=== PATIENT | female | born 1985 | race Caucasian/White ===

== ENCOUNTER 2021-07-03 21:30 | Emergency (ER) | payer BC, SELFPAY ==
--- NOTE | ~2021-07-03 | CT_ITS ---
EXAMINATION: CT abdomen pelvis w con DATE: 07/03/2021 22:59 INDICATION: Right flank pain TECHNIQUE: Computed tomography (CT) of the abdomen and pelvis was performed without intravenous contr ast. Automated exposure control and iterative reconstruction technique were employed. The dose-length product was 1004.48 mGy-cm. COMPARISON: 03/19/2019 FINDINGS: A couple unchanged subpleural likely benign noncalcified right lower lobe granuloma, the larger measu ring 6 x 3 mm . Heart size is normal. No pericardial or pleural effusion. Liver, gallbladder, spleen, pancreas, bilateral adrenal glands and right kidney are normal. 10 mm left renal cyst at the site of focal cortical scarring. Bowels including the appendix are normal. Small fat-containing umbilical he rnia. Bladder, anteverted uterus and right ovary are normal. 1.5 cm left adnexal cyst. No free intrap eritoneal gas or fluid. No pathologically enlarged abdominal or pelvic lymphadenopathy. Bones are unr emarkable. IMPRESSION: 1. No acute intra-abdominal/pelvic process. Reviewed, dictated and finalized at location A. LFISH CHECKER
[2021-07-03 21:40] VITALS: BP 170/98; PULSE 99; RESP 14; TEMP 36.6; O2SAT 99
[2021-07-03 22:18] VITALS: BP 148/100; PULSE 70; RESP 14; O2SAT 100
[2021-07-03] MEDS: ONDANSETRON INJ 4 MG/2 ML VIAL IV PUSH (22:20)
[2021-07-03 22:24] LABS: Appearance Urine Clear (Clear); Basophils Absolute Auto 0.04 K/mm3 (0.00-0.10); Basophils Percent Auto 0.3 % (0.0-1.0); Bilirubin Urine Negative (Negative); Color Urine Light Yellow (Yellow); Eosinophils Percent Auto 1.6 % (1.0-6.0); Glucose Urine UA Negative (Negative); Hematocrit 39.9 % (35.0-49.0); Hemoglobin 13.2 g/dL (12.0-15.0); Immature Granulocyte Absolute 0.04 K/mm3 (0.00-0.00); Immature Granulocyte Percent A 0.3 % (0.0-0.0); Ketones Urine Negative (Negative); Leukocyte Esterase Ur 1+ (Negative); Lymphocytes Absolute Auto 3.13 K/mm3 (1.10-4.50); Lymphocytes Percent Auto 24.7 % (18.0-42.0); Mean Corpuscular HGB Conc 33.1 g/dL (32.0-36.0); Mean Corpuscular Hemoglobin 30.4 pg (27.0-31.0); Mean Corpuscular Volume 91.9 fL (78.0-102.0); Mean Platelet Volume 10.2 fl (9.2-11.8); Monocytes Absolute Auto 1.31 K/mm3 (0.10-0.90); Monocytes Percent Auto 10.3 % (2.0-11.0); Neutrophils Absolute Auto 7.9 K/mm3 (1.7-7.2); Neutrophils Percent Auto 62.8 % (50.0-70.0); Nitrate Urine Negative (Negative); Platelet Count Result 306 K/mm3 (150-420); Protein Urine Negative (Negative); Red Blood Count 4.34 M/mm3 (4.20-5.40); Red Cell Distribution Width 13.9 % (11.6-14.4); Urobilinogen Urine 0.2 mg/dL (0.2-1.0); White Blood Count 12.7 K/mm3 (4.8-10.8); pH Urine 5.5 (5.0-8.0)
[2021-07-03] MEDS: MORPHINE SULFATE (*CRX) 2 MG/ML INJ IV PUSH (22:25)
[2021-07-03] MEDS: SODIUM CHLORIDE 0.9% IV 500 ML 999 ML IV CONT (22:29)
[2021-07-03 22:31] LABS: Add Urine Microscopic? YES; Bacteria Urine 1+ /hpf; Blood Urine Trace-Intact (Negative); RBC Urine 0-2 /hpf (0-2); Squamous Epithelial Cell Urine Few /hpf (Few)
[2021-07-03 22:37] LABS: SPREG INTERNAL CONTROL Positive; Serum Qual hCG Negative
[2021-07-03 22:41] LABS: Alanine Aminotransferase 53 U/L (14-59); Albumin Level 3.6 g/dL (3.4-5.0); Alkaline Phosphatase 65 U/L (46-116); Anion Gap 8 mmol/L (8-16); Aspartate Amino Transferase 26 U/L (15-37); Bilirubin,Total 0.3 mg/dL (0.00-1.00); Blood Urea Nitrogen 19 mg/dL (7-18); Calcium 8.9 mg/dL (8.5-10.1); Carbon Dioxide 26 mmol/L (21-32); Chloride 103 mmol/L (98-108); Estimated CRCL calculation 69 ml/min; Estimated Glomerular Filt Rate 57; Glucose 97 mg/dL (70-99); Lipase 138 U/L (73-393); Osmolality Calculated 286 mOsm/kg (285-295); Potassium 4.1 mmol/L (3.5-5.1); Sodium 137 mmol/L (136-145); Total Protein 7.1 g/dL (6.4-8.2)
--- NOTE | 2021-07-03 22:42 | ED.ABDPAIN ---
HPI - Abdominal Pain General Chief Complaint: Abdominal Pain Stated Complaint: rt side pain Time Seen by Provider: 07/03/21 21:33 Source: patient, RN notes reviewed and old records reviewed Mode of arrival: ambulatory Limitations: no limitations History of Present Illness MD elicited complaint: flank pain Pertinent past history: none Onset (ago): hour(s) (4) Pain Consistency: constant Location: R flank Severity: mild Pain scale (0-10): 4 Quality: cramping, aching and dull Radiation: R flank Migration to: no migration Exacerbating factors: nothing Relieving factors: nothing Associated symptoms: nausea Related Data Allergies Allergy/AdvReac Type Severity Reaction Status Date / Time nalbuphine [From Nubain] Allergy Severe Anaphylactic Verified 07/03/21 21:44 Shock Review of Systems Review of Systems: All systems reviewed & are unremarkable except as noted in HPI and below PMFSH Past Medical History Medical History UTI (urinary tract infection) Exam Const: General: no acute distress Orientation/consciousness: patient oriented x3 Limitations: no limitations HENMT: Head: normal to inspection Ears: external ears normal, TM's normal bilaterally and EAC's normal General nose exam: Normal external nose present and Normal nares present Mouth: Yes lip normal and Yes moist mucous membranes Eyes: Conjunctivae: conjunctivae normal Pupils: Equal, round and reactive pupils present EOM: EOMs intact bilaterally Neck: Neck: normal visual inspection and no lymphadenopathy Chest: Chest palpation & inspection: normal inspection of the chest Resp: Effort & Inspection: normal respiratory effort Auscultation: clear to auscultation bilaterally Cardio: Rate: regular rate Rhythm: regular rhythm GI: GI Palp: Yes Soft to palpation and No Tenderness to palpation present (GI) Auscultation: normal bowel sounds : General: Yes no CVA tenderness Other: minimal suprapubic tenderness Back/Spine/Pelvis: Back: no CVA tenderness Skin: General skin exam: normal color Rashes: no rashes Neuro: General: patient oriented x3, moves all extremities, no meningeal signs, no focal motor deficits and CN's II-XI intact bilaterally Extrem: General: normal to inspection and no pedal edema Psych: Appearance: grossly normal and well kempt Mental Status: mental status grossly normal Affect: normal affect Thought content: Yes Normal thought content present Course Course Emergency Course: Pt was stable in the ED, less painful. Reevaluation(s) Reevaluation #1: moderated BP. Date: 07/03/21 Time: 22:25 Vital Signs Vital signs: Vital Signs Temperature 36.6 C 07/03/21 21:40 Pulse Rate 99 07/03/21 21:40 Respiratory Rate 14 07/03/21 21:40 Blood Pressure 170/98 H 07/03/21 21:40 Pulse Oximetry 99 07/03/21 21:40 Temperature 36.3 C L 07/04/21 00:58 Pulse Rate 61 07/04/21 00:58 Respiratory Rate 17 07/04/21 00:58 Blood Pressure 144/102 H 07/04/21 00:58 Pulse Oximetry 100 07/04/21 00:58 MDM - Abdominal Pain Differential Diagnosis Differential diagnosis: Likely abdominal pain, acute appendicitis, calculus of kidney, small bowel obstruction and other (uti) Medical Records Attestation: I reviewed the patient's medical records. Lab Data Attestation: I reviewed the patient's lab results. Result diagrams: 07/03/21 22:19 07/03/21 22:19 Labs: Lab Results 07/03/21 07/03/21 07/03/21 Range/Units 22:19 22:19 22:19 WBC 12.7 H (4.8-10.8) K/mm3 RBC 4.34 (4.20-5.40) M/mm3 Hgb 13.2 (12.0-15.0) g/dL Hct 39.9 (35.0-49.0) % MCV 91.9 (78.0-102.0) fL MCH 30.4 (27.0-31.0) pg MCHC 33.1 (32.0-36.0) g/dL RDW 13.9 (11.6-14.4) % Plt Count 306 (150-420) K/mm3 MPV 10.2 (9.2-11.8) fl Immature Gran % (Auto) 0.3 H (0.0-0.0) % Neut % (Auto) 62.8 (50.0-70.0) % Lymph % (Auto) 24.7
[2021-07-03 23:06] VITALS: BP 175/98; PULSE 60; RESP 14; O2SAT 100
--- NOTE | 2021-07-03 23:07 | PC.NURSE ---
PT HAS RETURNED FROM CT, REPORTS PAIN FREE AT THIS TIME. DAUGHTER AT BEDSIDE. PT IS AWAITING RESULTS AT THIS TIME. NAD NOTED. PT REMAINS HYPERTENSIVE AT THIS TIME. PT HAS IVF INFUSING ORDERED WITHOUT DIFFICULTY. PT DENIES COMPLAINTS, WARM BLANKETS PROVIDED. REPORT TO CISCO GUZMAN AT THIS TIME.
[2021-07-04 00:58] VITALS: BP 144/102; PULSE 61; RESP 17; TEMP 36.3; O2SAT 100
== END 2021-07-04 01:02 | disposition home or self-care (01) ==
PROVIDERS: Emergency Provider Emergency Medicine
DX: N39.0 Urinary tract infection, site not specified (principal)
CPT/HCPCS: 36415; 74177; 80053; 81001; 83690; 84703; 85025; 96361; 96365; 96375; 99284; J0696; J2270; J2405; J7040; Q9967

== ENCOUNTER 2021-09-20 12:20 | Emergency (ER) | payer BC, MEDICAID, SELFPAY ==
--- NOTE | ~2021-09-20 | CT_ITS ---
EXAMINATION: CT brain wo con DATE: 09/20/2021 14:05 INDICATION: Head injury. Headache. TECHNIQUE: Computed tomography (CT) of the head was performed without intravenous contrast. The mA wa s adjusted according to patient size. Iterative reconstruction technique was employed. The dose-lengt h product was 529.67 mGy-cm. COMPARISON: None FINDINGS: There is no intracranial hemorrhage, acute infarction, or abnormal intracranial mass lesion . The ventricles are normal in size. The paranasal sinuses are clear. The mastoid air cells are rojas l. The orbits are normal. IMPRESSION: 1. Normal brain. Reviewed, dictated and finalized at location A. IMPRESSION: 1. Normal brain.
--- NOTE | ~2021-09-20 | CT_ITS ---
EXAMINATION: CT cervical spine wo con DATE: 09/20/2021 14:05 INDICATION: Head injury. TECHNIQUE: Computed tomography (CT) of the cervical spine was performed without intravenous contrast. Automated exposure control and iterative reconstruction technique were employed. The dose-length pro duct was 372.21 mGy-cm. COMPARISON: None FINDINGS: There is kyphosis and 3 degrees levocurvature of cervical spine. Vertebral body heights are normal. Intervertebral disc heights are normal. The following disc levels are specifically discussed : C2-C3: There is no uncovertebral joint osteoarthritis. There is mild right facet joint osteoarthritis . There is no neural foraminal stenosis. There is no central canal stenosis. C3-C4: There is no uncovertebral joint osteoarthritis. There is mild bilateral facet joint osteoarthr itis. There is no neural foraminal stenosis. There is no central canal stenosis. C4-C5: There is no uncovertebral joint osteoarthritis. There is severe right facet joint osteoarthrit is. There is mild right neural foraminal stenosis. There is mild central canal stenosis. C5-C6: There is no uncovertebral joint osteoarthritis. There is no facet joint osteoarthritis. There is no neural foraminal stenosis. There is no central canal stenosis. C6-C7: There is no uncovertebral joint osteoarthritis. There is moderate right facet joint osteoarthr itis. There is no neural foraminal stenosis. There is no central canal stenosis. C7-T1: There is no uncovertebral joint osteoarthritis. There is severe bilateral facet joint osteoart hritis. There is mild bilateral neural foraminal stenosis. There is no central canal stenosis. IMPRESSION: 1. No fracture. 2. Mild cervical spondylosis. Reviewed, dictated and finalized at location A.
[2021-09-20 13:30] VITALS: O2SAT 99
[2021-09-20 13:40] VITALS: BP 146/105; PULSE 81; RESP 20; TEMP 35.7; O2SAT 98
[2021-09-20] MEDS: KETOROLAC (*BKC) 60 MG/2 ML VIAL IM (13:49)
--- NOTE | 2021-09-20 14:23 | ED.HEATRA ---
HPI - Head Injury General Chief complaint: Head Injury Stated complaint: HIT HEAD PAIN IN HEAD AND NECK Time Seen by Provider: 09/20/21 14:23 Source: patient Mode of arrival: ambulatory Limitations: no limitations History of Present Illness HPI Narrative: this is a 35-year-old female that presents with a head injury and radiating into her left neck area after she ran into a swinging door causing some pain and radiation to neck area with no loss of consciousness no nausea vomiting patient did take some Tylenol with minimal relief. There is no nausea vomiting no chest pain no numbness or tingling radiating down her into her shoulders or arms or fingers. Has good range of motion although tender in the neck due to pain there is no blurry vision. Complaint: head injury Onset (ago): day(s) Mechanism of Injury: other ( Hit a swinging door) Place: work Loss of Consciousness: no Location of injury: frontal Severity: mild Severity scale (1-10): 4 Quality: dull Radiation: neck Related Data Allergies Allergy/AdvReac Type Severity Reaction Status Date / Time nalbuphine [From Nubain] Allergy Severe Anaphylactic Verified 07/03/21 21:44 Shock Review of Systems Review of Systems: All systems reviewed & are unremarkable except as noted in HPI and below PMFSH Past Medical History Medical History UTI (urinary tract infection) Exam Const: General: no acute distress and alert Orientation/consciousness: patient oriented x3 HENMT: Head: normal to inspection and contusion Eyes: Conjunctivae: conjunctivae normal Pupils: Equal, round and reactive pupils present EOM: EOMs intact bilaterally Direct Ophthalmoscopy: no photophobia Neck: Neck: normal visual inspection, no lymphadenopathy and no meningeal signs Chest: Chest palpation & inspection: normal inspection of the chest Resp: Effort & Inspection: normal respiratory effort Auscultation: clear to auscultation bilaterally Cardio: Rate: regular rate Rhythm: regular rhythm GI: GI Palp: Yes Soft to palpation : General: Yes no CVA tenderness Skin: General skin exam: normal color Rashes: no rashes Neuro: General: patient oriented x3 Extrem: General: normal to inspection Psych: Mental Status: mental status grossly normal Affect: normal affect Course Course Emergency Course: CT scan of head and neck reviewed with patient patient received IM Toradol. Reassessment of patient, symptoms have improved. Vital Signs Vital signs: Vital Signs Temperature 35.7 C L 09/20/21 13:40 Pulse Rate 81 09/20/21 13:40 Respiratory Rate 20 09/20/21 13:40 Blood Pressure 146/105 H 09/20/21 13:40 Pulse Oximetry 98 09/20/21 13:40 Temperature 35.7 C L 09/20/21 13:40 Pulse Rate 81 09/20/21 13:40 Respiratory Rate 20 09/20/21 13:40 Blood Pressure 146/105 H 09/20/21 13:40 Pulse Oximetry 98 09/20/21 13:40 Critical Care Time Critical Care Time Critical Care Time: No Discharge Plan Discharge Clinical Impression: Cervical muscle strain Qualifiers: Encounter type: initial encounter Qualified Code(s): S16.1XXA - Strain of muscle, fascia and tendon at neck level, initial encounter Headache Qualifiers: Headache type: unspecified Headache chronicity pattern: acute headache Intractability: not intractable Qualified Code(s): R51.9 - Headache, unspecified Patient Disposition: Home, Self-Care Condition: Stable Instructions: Antibiotic Form, Cervical Strain (ED), Head Injury (ED) Additional Instructions: can use warm compress to affected neck, take medicine as prescribed follow-up primary care physician if symptoms persist or worsen. Prescriptions: New naproxen 500 mg tablet 500 mg PO BID Qty: 14 RF: 0 cyclobenzaprine 5 mg tablet 5 mg PO TID Qty: 20 RF: 0 No Action sulfamethoxazole-trimethoprim [Bactrim DS] 800-160 mg tablet 1 tablet PO Q12H Qty: 20 RF: 0 ibupro
[2021-09-20 15:10] VITALS: BP 141/100; PULSE 78; RESP 20; TEMP 36.9; O2SAT 99
== END 2021-09-20 15:13 | disposition home or self-care (01) ==
PROVIDERS: Emergency Provider Emergency Medicine; PCP Family Medicine
DX: S16.1XXA Strain of muscle, fascia and tendon at neck level, initial encounter (principal); R51.9 Headache, unspecified; W22.8XXA Striking against or struck by other objects, initial encounter
CPT/HCPCS: 70450; 72125; 96372; 99284; J1885

== ENCOUNTER 2021-11-19 09:43 | Emergency (ER) | payer BC, MEDICAID, SELFPAY ==
[2021-11-19 09:55] VITALS: BP 135/93; PULSE 94; RESP 16; TEMP 36.6; O2SAT 97
[2021-11-19] MEDS: TETRACAINE HCL 0.5% OPHTH SOLN 4 ML BTL 1 DROP EACH EYE (10:04)
[2021-11-19] MEDS: DACRIOSE EYE IRRIGATION 118 ML BOTTLE 10 ML LEFT EYE (10:04)
[2021-11-19] MEDS: FLUORESCEIN SOD 1 MG/STRIP EACH EYE (10:04)
--- NOTE | 2021-11-19 10:09 | ED.EYEPROB ---
HPI - Eye Problem General Chief complaint: Eye Problems Stated complaint: L EYE PAIN Source: patient Mode of arrival: ambulatory Limitations: no limitations History of Present Illness HPI Narrative: This is a 36-year-old female who presents with left eye irritation and redness with tearing burning and pain no known injury no known foreign body in her left eye started approximately 1 day ago and has become worse currently there is tearing redness with no fever chills no visual disturbance. chief complaint: eye redness Onset (ago): day(s) Onset description: gradual Duration: constant Location: left eye Eye Symptoms: burning, redness and pain Place: home Severity: mild Related Data Home Medications Medication Instructions Recorded Confirmed No Home Medications 11/19/21 11/19/21 Allergies Allergy/AdvReac Type Severity Reaction Status Date / Time nalbuphine [From Nubain] Allergy Severe Anaphylactic Verified 11/19/21 09:59 Shock Review of Systems Review of Systems: All systems reviewed & are unremarkable except as noted in HPI and below PMFSH Past Medical History Medical History UTI (urinary tract infection) Exam Const: General: healthy appearing and no acute distress Limitations: no limitations HENMT: Head: normal to inspection Ears: external ears normal Mouth: Yes Normal oral and palatal mucosa present Eyes: Conjunctivae: conjunctival abnormality ( Erythema) Pupils: Equal, round and reactive pupils present EOM: EOMs intact bilaterally Neck: Neck: normal visual inspection Chest: Chest palpation & inspection: normal inspection of the chest Resp: Effort & Inspection: normal respiratory effort Auscultation: clear to auscultation bilaterally Cardio: Rate: regular rate Rhythm: regular rhythm Back/Spine/Pelvis: Back: no CVA tenderness Skin: General skin exam: normal color Rashes: no rashes Wounds: no wounds Neuro: General: patient oriented x3, moves all extremities and no meningeal signs Extrem: General: normal to inspection, no clubbing, cyanosis or edema and no pedal edema Psych: Mental Status: mental status grossly normal Affect: normal affect Course Course Emergency Course: tetracaine was instilled into the left eye patient states that eye discomfort has improved the eye was visualized with some slower seen stain showed no corneal abrasions. Patient had a dose of TobraDex instilled to the left eye. Vital Signs Vital signs: Vital Signs Temperature 36.6 C 11/19/21 09:55 Pulse Rate 94 11/19/21 09:55 Respiratory Rate 16 11/19/21 09:55 Blood Pressure 135/93 H 11/19/21 09:55 Pulse Oximetry 97 11/19/21 09:55 Oxygen Delivery Room Air 11/19/21 09:55 Temperature 36.6 C 11/19/21 09:55 Pulse Rate 94 11/19/21 09:55 Respiratory Rate 16 11/19/21 09:55 Blood Pressure 135/93 H 11/19/21 09:55 Pulse Oximetry 97 11/19/21 09:55 Oxygen Delivery Room Air 11/19/21 09:55 Procedures FB Removal Eye Foreign Body #1: Time Out performed: Yes Location: eye (L) Topical anesthetic used: tetracaine Foreign body: other ( No foreign body visualized) Evidence of corneal penetration: No Procedure performed under: direct visualization with magnification Post-procedure medication: ophthalmic antibiotic Patient tolerated procedure: well Critical Care Time Critical Care Time Critical Care Time: No Discharge Plan Discharge Clinical Impression: Bacterial conjunctivitis Patient Disposition: Home, Self-Care Condition: Stable Instructions: Antibiotic Form, Conjunctivitis (ED) Additional Instructions: use eyedrops has given 4 times daily x1 week. Follow up primary care physician if symptoms persist or worsen. Prescriptions: No Action No Home Medications Follow-up/Referrals: Gianfranco Rhodes M.D. [Primary Care Provider] -
[2021-11-19] MEDS: TOBRAMYCIN/DEXAMETHASONE OP 2.5 ML BTL 1 DROP LEFT EYE (10:13)
[2021-11-19 10:17] VITALS: BP 135/93; PULSE 94; RESP 16; TEMP 36.6; O2SAT 97
== END 2021-11-19 10:19 | disposition home or self-care (01) ==
PROVIDERS: Emergency Provider Emergency Medicine; PCP Family Medicine
DX: H10.9 Unspecified conjunctivitis (principal)
CPT/HCPCS: 99283; A9270

== ENCOUNTER 2022-06-14 08:08 | Emergency (ER) | payer BC, MEDICAID, SELFPAY ==
--- NOTE | ~2022-06-14 | US_ITS ---
Limited Abdominal Sonogram: Real-time sonographic imaging of the right upper quadrant was performed. Clinical History: Abdominal pain Findings: The liver appears normal with no evidence of mass lesion or bile duct dilatation. Main por fanta vein demonstrates normal direction of flow. The gallbladder is well distended, with probable smal l amount of gallbladder sludge. No gallbladder wall thickening. The common bile duct measures 3 mm. The visualized pancreas, aorta, and IVC are unremarkable. Right kidney measures 8.6 cm in length, wit hout evidence of hydronephrosis. Impression: Probable gallbladder sludge. Reviewed, dictated and finalized at location . [employer] Impression: Probable gallbladder sludge.
[2022-06-14 08:10] VITALS: BP 140/104
[2022-06-14 08:13] VITALS: BP 153/115; PULSE 104; RESP 14; TEMP 36.6; O2SAT 98
--- NOTE | 2022-06-14 08:29 | ED.ABDPAIN ---
HPI - Abdominal Pain General Chief Complaint: Abdominal Pain Stated Complaint: Abdominal Pain Time Seen by Provider: 06/14/22 08:29 Source: patient and RN notes reviewed Mode of arrival: ambulatory Limitations: no limitations History of Present Illness HPI narrative: Patient states that she had some abdominal pain 2 days. Then last night she began having vomiting. She does not related to any meals. She states that her pain is in the epigastric region and then goes out from there mostly on the right side. She denies any other urinary symptoms. She denies any constipation. MD elicited complaint: abdominal pain Pertinent past history: none Onset (ago): day(s) (2) Pain Consistency: intermittent Location: epigastric Severity: moderate Quality: cramping and aching Radiation: none Migration to: no migration Exacerbating factors: nothing Relieving factors: nothing Associated symptoms: nausea and vomiting Related Data Allergies Allergy/AdvReac Type Severity Reaction Status Date / Time nalbuphine [From Nubain] Allergy Severe Anaphylactic Verified 01/29/22 09:03 Shock Review of Systems Review of Systems: All systems reviewed & are unremarkable except as noted in HPI and below Constitutional: Constitutional: Denies chills and Denies fever(s) Gastrointestinal: Gastrointestinal: Denies diarrhea Genitourinary: Genitourinary: Denies nocturia Musculoskeletal: Musculoskeletal: Denies myalgias PMFSH Past Medical History Medical History (Updated 06/14/22 @ 09:36 by Orlando Huerta MD) No active medical problems Surgical History Surgical History (Updated 06/14/22 @ 08:36 by Orlando Huerta MD) History of bilateral tubal ligation Social History Social History (Updated 06/14/22 @ 08:37 by Orlando Huerta MD) Smoking status: Never smoker Substance use: never Exam Const: General: healthy appearing, no acute distress and alert Nutritional Appearance: well nourished Orientation/consciousness: patient oriented x3 Limitations: no limitations Other: female tech in room during examination. HENMT: Head: normal to inspection Ears: external ears normal Face/Nose/Sinus: Normal external nose present Face and sinus: normal facial exam Mouth: Yes moist mucous membranes Eyes: Conjunctivae: conjunctivae normal Pupils: Equal, round and reactive pupils present EOM: EOMs intact bilaterally Neck: Neck: normal visual inspection Resp: Effort & Inspection: normal respiratory effort Auscultation: clear to auscultation bilaterally Cardio: Rate: regular rate Rhythm: regular rhythm GI: GI Palp: Yes Soft to palpation, Yes Tenderness to palpation present (GI) ( Moderate RUQ positive Lynn sign) and Yes Guarding due to palpation present (GI) ( moderate) Auscultation: Hypoactive bowel sounds present Back/Spine/Pelvis: Cervical Spine: cervical ROM normal Thoracic/Lumbar Spine: thoraco-lumbar ROM normal Skin: General skin exam: normal color Rashes: no rashes Neuro: General: patient oriented x3, moves all extremities, no focal motor deficits and CN's II-XI intact bilaterally Speech: normal speech Gait exam (Neuro): Normal gait present Extrem: General: normal to inspection and no clubbing, cyanosis or edema Psych: Mental Status: mental status grossly normal Affect: normal affect Attitude: cooperative Course Vital Signs Vital signs: Vital Signs Blood Pressure 140/104 H 06/14/22 08:10 Temperature 36.6 C 06/14/22 08:13 Pulse Rate 104 H 06/14/22 08:13 Respiratory Rate 14 06/14/22 08:13 Blood Pressure 153/115 H 06/14/22 08:13 Pulse Oximetry 98 06/14/22 08:13 Oxygen Delivery Room Air 06/14/22 08:13 MDM - Abdominal Pain MDM Narrative Medical decision making narrative: Differential diagnosis: Cholelithiasis, biliary colic, is possible due to her exam. Her labs showed that she has not having any current obstruction in her common bile duct. She will need to see a surgeon for po
--- NOTE | 2022-06-14 08:31 | PC.NURSE ---
dr cedeno in room with pt, miladis jaramillo in room during evaluation.
[2022-06-14 08:50] LABS: Add Urine Microscopic? YES; Appearance Urine Slightly Cloudy (Clear); Bilirubin Urine 1+ (Negative); Blood Urine Negative (Negative); Color Urine Light Yellow (Yellow); Glucose Urine UA Negative (Negative); Ketones Urine 2+ (Negative); Leukocyte Esterase Ur 2+ LEU/UL (Negative); Nitrate Urine Negative (Negative); Protein Urine Trace (Negative)
[2022-06-14 08:52] LABS: Basophils Absolute Auto 0.07 K/mm3 (0.00-0.10); Basophils Percent Auto 0.7 % (0.0-1.0); Eosinophils Absolute Auto 0.14 K/mm3 (0.02-0.50); Eosinophils Percent Auto 1.4 % (1.0-6.0); Hematocrit 42.3 % (35.0-49.0); Hemoglobin 14.3 g/dL (12.0-15.0); Immature Granulocyte Absolute 0.03 K/mm3 (0.00-0.00); Immature Granulocyte Percent A 0.3 % (0.0-0.0); Lymphocytes Absolute Auto 1.78 K/mm3 (1.10-4.50); Lymphocytes Percent Auto 17.2 % (18.0-42.0); Mean Corpuscular HGB Conc 33.8 g/dL (32.0-36.0); Mean Corpuscular Hemoglobin 30.7 pg (27.0-31.0); Mean Corpuscular Volume 90.8 fL (78.0-102.0); Mean Platelet Volume 10.4 fl (9.2-11.8); Monocytes Percent Auto 9.7 % (2.0-11.0); Neutrophils Absolute Auto 7.3 K/mm3 (1.7-7.2); Neutrophils Percent Auto 70.7 % (50.0-70.0); Platelet Count Result 308 K/mm3 (150-420); Red Blood Count 4.66 M/mm3 (4.20-5.40); Red Cell Distribution Width 13.5 % (11.6-14.4); White Blood Count 10.4 K/mm3 (4.8-10.8)
[2022-06-14 08:55] LABS: Bacteria Urine 2+ /hpf; Mucus Urine Moderate /lpf; RBC Urine None seen /hpf (0-2); Squamous Epithelial Cell Urine Many /hpf (Few)
--- NOTE | 2022-06-14 08:56 | PC.NURSE ---
ultrasound staff in with pt at this time.
[2022-06-14 09:09] LABS: Alanine Aminotransferase 39 U/L (14-59); Albumin Level 4.1 g/dL (3.4-5.0); Alkaline Phosphatase 65 U/L (46-116); Amylase 79 U/L (25-115); Anion Gap 7 mmol/L (8-16); Aspartate Amino Transferase 12 U/L (15-37); Bilirubin,Total 0.4 mg/dL (0.00-1.00); Blood Urea Nitrogen 11 mg/dL (7-18); Calcium 9.6 mg/dL (8.5-10.1); Carbon Dioxide 31 mmol/L (21-32); Chloride 102 mmol/L (98-108); Estimated CRCL calculation 72 ml/min; Estimated Glomerular Filt Rate > 60; Glucose 89 mg/dL (70-99); Lipase 31 U/L (16-77); Osmolality Calculated 288 mOsm/kg (285-295); Potassium 3.9 mmol/L (3.5-5.1); Sodium 140 mmol/L (136-145); Total Protein 7.6 g/dL (6.4-8.2)
[2022-06-14 09:11] LABS: Lactic Acid Reflex 0.9 mmol/L (0.4-2.0)
[2022-06-14 09:14] LABS: CRP 0.5 mg/dL (0.0-0.9)
[2022-06-14] MEDS: DICYCLOMINE HCL INJ 20 MG/2 ML VIAL IM (09:47)
[2022-06-14] MEDS: ONDANSETRON HCL ODT 4 MG TABLET PO (10:00)
--- NOTE | 2022-06-14 10:01 | PC.NURSE ---
pt having dry heeves dr cedeno notified. order received.
[2022-06-14 10:02] VITALS: BP 150/108; PULSE 94; RESP 20; TEMP 36.9; O2SAT 94
--- NOTE | 2022-06-14 10:07 | PC.NURSE ---
dr cedeno to also send james to [facility] for nausea.
== END 2022-06-14 10:07 | disposition home or self-care (01) ==
PROVIDERS: Emergency Provider Emergency Medicine; PCP Family Medicine
DX: K80.20 Calculus of gallbladder without cholecystitis without obstruction (principal); N30.01 Acute cystitis with hematuria
CPT/HCPCS: 36415; 76705; 80053; 81001; 82150; 83605; 83690; 85025; 86140; 87086; 96372; 99284; A9270; J0500

== ENCOUNTER 2022-06-15 11:56 | Observation (INO) | payer BC, MEDICAID, SELFPAY ==
[2022-06-15] VITALS (8 sets, daily range): BP systolic 115–145; BP diastolic 71–107; PULSE 64–98; RESP 14–20; TEMP 36–36.9; O2SAT 97–100; BMI 30.8
--- NOTE | ~2022-06-15 | CT_ITS ---
EXAMINATION: CT abdomen pelvis w con DATE: 06/15/2022 12:54 INDICATION: Abdomen pain TECHNIQUE: Computed tomography (CT) of the abdomen and pelvis was performed with 100 cc Omnipaque 350 intravenous contrast. The dose-length product was 625.73 mGy-cm. Automated exposure control and iter ative reconstruction technique were employed. COMPARISON: CT dated 07/03/2021. FINDINGS: Lung bases are unremarkable. Heart size normal. No significant pleural or pericardial effus ion. Ossified granuloma left lower lobe. No pneumothorax. No significant vascular abnormality. No lym phadenopathy. Small amount of free fluid in the pelvis. Colonic diverticulosis without evidence for d iverticulitis. Fatty infiltration of the liver. The spleen, pancreas, adrenal glands and right kidney are unremarkab le. There is focal renal cortical thinning and the left kidney. Nonobstructive bowel gas pattern. No free air. Nonobstructive bowel gas pattern. No acute osseous abnormality. Gallbladder is present. IMPRESSION: 1. No acute abdominal abnormality. Reviewed, dictated and finalized at location A. SHOP TECHNICIAN
[2022-06-15 12:28] LABS: Appearance Urine Slightly Cloudy (Clear); Basophils Absolute Auto 0.1 K/mm3 (0.0-0.1); Basophils Percent Auto 0.4 % (0.2-1.2); Bilirubin Urine 2+ (Negative); Blood Urine Negative (Negative); Color Urine Yellow (Yellow); Eosinophils Absolute Auto 0.1 K/mm3 (0-0.3); Eosinophils Percent Auto 0.6 % (0-4.4); Glucose Urine UA Negative (Negative); Hematocrit 45.1 % (37.0-47.0); Hemoglobin 15.4 g/dL (12.0-15.0); Immature Granulocyte Absolute 0.03 K/mm3 (0.00-0.031); Immature Granulocyte Percent A 0.2 % (0-0.5); Ketones Urine 2+ mg/dL (Negative); Leukocyte Esterase Ur Trace LEU/UL (Negative); Lymphocytes Absolute Auto 2.58 K/mm3 (0.9-3.2); Lymphocytes Percent Auto 16.1 % (18.3-44.2); Mean Corpuscular HGB Conc 34.1 g/dl (32-36); Mean Corpuscular Hemoglobin 30.7 pg (26-34); Mean Platelet Volume 10.3 fl (7.4-10.4); Monocytes Absolute Auto 1.6 K/mm3 (0.1-0.6); Monocytes Percent Auto 10.1 % (2.6-8.5); Neutrophils Absolute Auto 11.6 K/mm3 (1.3-6.7); Neutrophils Percent Auto 72.6 % (45.5-73.1); Nitrate Urine Negative (Negative); Platelet Count Result 344 k/mm3 (150-375); Protein Urine 1+ mg/dL (Negative); Red Blood Count 5.01 M/mm3 (4.2-5.4); Red Cell Distribution Width 13.7 % (11.5-14.5); Specific Grav Ur >= 1.030 (1.001-1.035); Urobilinogen Urine 0.2 mg/dL (<2.0); pH Urine 5.5 (5.0-9.0)
[2022-06-15 12:37] LABS: Alanine Aminotransferase 33 U/L (6-35); Albumin Level 4.5 g/dL (3.5-5.1); Alkaline Phosphatase 62 U/L (38-126); Anion Gap 12 mmol/L (8-16); Aspartate Amino Transferase 32 U/L (14-36); Bilirubin,Total 0.6 mg/dL (0.2-1.3); Blood Urea Nitrogen 16 mg/dL (7-17); Calcium 9.3 mg/dL (8.4-10.2); Carbon Dioxide 24 mmol/L (22-30); Chloride 102 mmol/L (98-107); Estimated CRCL calculation 71 ml/min; Estimated Glomerular Filt Rate > 60; Glucose 84 mg/dL (65-110); Lipase 74 U/L (23-300); Potassium 3.9 mmol/L (3.4-5.0); Sodium 138 mmol/L (137-145)
--- NOTE | 2022-06-15 12:44 | ED.ABDPAIN ---
HPI - Abdominal Pain General Chief Complaint: Abdominal Pain Stated Complaint: Abd Pain Time Seen by Provider: 06/15/22 12:07 Source: RN notes reviewed History of Present Illness HPI narrative: Patient presents emergency department from home for abdominal pain. Patient states symptoms began approximately 3 days ago. Patient states pain is across the upper abdomen worse in the right upper quadrant is associated with nausea and vomiting she denies any fevers or chills chest pain shortness of breath. The pain is described as sharp and stabbing does not radiate. Patient states [facility] her gallbladder showing that she had cholelithiasis and was discharged home with dicyclomine which she took this morning with minimal relief states her pain worsened today Related Data Allergies Allergy/AdvReac Type Severity Reaction Status Date / Time nalbuphine [From Nubain] Allergy Severe Anaphylactic Verified 06/15/22 12:05 Shock Review of Systems Review of Systems: Gen.: Denies fevers or chills ENT: Denies congestion Respiratory: Denies shortness of breath or cough CV: Denies chest pain or palpitations GI: See HPI Musculoskeletal: Denies back pain or muscle pain Neuro: Denies numbness, tingling, weakness or focal weakness Skin: Denies rash Except as documented, all other systems reviewed and negative [facility] Past Medical History Medical History No active medical problems Surgical History Surgical History (Updated 06/14/22 @ 08:36 by Orlando Huerta MD) History of bilateral tubal ligation Social History Social History Smoking status: Never smoker Substance use: never Exam Narrative: APPEARANCE: No acute distress, nontoxic, resting in bed HEENT: Normocephalic, atraumatic, OMM RESPIRATORY: No respiratory distress, clear to auscultation bilaterally with no rhonchi wheezing or rales CARDIOVASCULAR: RRR s murmur ABDOMINAL: Soft nondistended tender palpation epigastric and right upper quadrant no tenderness in right lower quadrant, left lower quadrant and left upper quadrant no rebound or guarding MUSCULOSKELETAl: Moves all extremities. No clubbing, cyanosis or edema. NEURO: Awake and alert. Following commands, speech normal, no focal deficits SKIN:: Warm, dry. Normal Color PSYCHIATRIC: Normal affect/mood Course Course Emergency Course: Reviewed right upper quadrant ultrasound from yesterday showing gallbladder sludge Patient continues to have pain in right upper quadrant following medication states she cannot take morphine without problems morphine given Plan working the pain is improved but is still present chip silo tender right upper quadrant Discussed with Dr. Salas for general surgery agrees with admission to his service recommends patient started on Zosyn Discussed with patient and family results of workup and diagnosis. Discussed need for admission. Patient and family understand and agree to current treatment plan Vital Signs Vital signs: Vital Signs Temperature 98.5 F 06/15/22 12:02 Pulse Rate 86 06/15/22 12:02 Respiratory Rate 20 06/15/22 12:02 Blood Pressure 128/107 H 06/15/22 12:02 Pulse Oximetry 98 06/15/22 12:02 Oxygen Delivery Room Air 06/15/22 12:02 Temperature 98.5 F 06/15/22 12:02 Pulse Rate 82 06/15/22 13:06 Respiratory Rate 18 06/15/22 13:06 Blood Pressure 131/94 H 06/15/22 13:06 Pulse Oximetry 100 06/15/22 13:06 Oxygen Delivery Room Air 06/15/22 12:02 MDM - Abdominal Pain MDM Narrative Medical decision making narrative: Patient presents emergency department for right heart abdominal pain has been ongoing for the past 3 days patient had a ultrasound yesterday showing gallbladder sludge elevated white count today that is increased up to 16 patient continues to have pain in the right upper quadrant afte
[2022-06-15 12:45] LABS: Bacteria Urine Trace /hpf; Mucus Urine Heavy /lpf; Squamous Epithelial Cell Urine Many /hpf (Few)
--- NOTE | 2022-06-15 12:51 | PC.NURSE ---
Pt in CT
[2022-06-15 12:53] LABS: Add Urine Microscopic? YES
[2022-06-15] MEDS: ONDANSETRON INJ 4 MG/2 ML VIAL IV PUSH (13:07)
[2022-06-15] MEDS: SODIUM CHLORIDE 0.9% IV 1,000 ML 999 ML IV CONT (13:07)
[2022-06-15] MEDS: MORPHINE SULFATE (*CRX) 4 MG/ML INJ IV PUSH ×3 (14:17→21:46)
[2022-06-15] MEDS: SODIUM CHLORIDE 0.9% IV 1,000 ML 125 ML IV CONT (15:13)
[2022-06-15 16:00] LABS: Influenza A QL RT-PCR Negative (Negative); Influenza B QL RT-PCR Negative (Negative); RSV RNA, RT-PCR Negative (Negative); SARS-CoV-2 RNA PCR Negative
--- NOTE | 2022-06-15 17:04 | ADMGEN ---
This patient, Lily Peña, was admitted to 3 Med Surg Room 309-01 at 1645. Patient/family oriented to hospital policies and general routines including ID bracelet, bed and alarms, visiting hours, pain management, procedures, bathroom and other care routines, personal items, smoking policy, room service/diet, and visiting hours. Information on how to activate the Rapid Response Team has been discussed. Patient/Family are encouraged to report perceived risks to care and to ask questions if they do not understand what they are told or what they should do.
[2022-06-16] MEDS: SODIUM CHLORIDE 0.9% IV 1,000 ML 125 ML IV CONT ×2 (02:22→06:57)
[2022-06-16 06:00] VITALS: BP 121/80; PULSE 70; RESP 20; TEMP 36; O2SAT 100
[2022-06-16 06:03] LABS: Basophils Absolute Auto 0.1 K/mm3 (0.0-0.1); Basophils Percent Auto 0.6 % (0.2-1.2); Eosinophils Absolute Auto 0.2 K/mm3 (0-0.3); Eosinophils Percent Auto 1.3 % (0-4.4); Hematocrit 40.2 % (37.0-47.0); Hemoglobin 13.3 g/dL (12.0-15.0); Immature Granulocyte Absolute 0.04 K/mm3 (0.00-0.031); Immature Granulocyte Percent A 0.3 % (0-0.5); Lymphocytes Absolute Auto 2.46 K/mm3 (0.9-3.2); Lymphocytes Percent Auto 19.4 % (18.3-44.2); Mean Corpuscular HGB Conc 33.1 g/dl (32-36); Mean Corpuscular Hemoglobin 30.6 pg (26-34); Mean Corpuscular Volume 92.6 fl (80-100); Mean Platelet Volume 10.4 fl (7.4-10.4); Monocytes Absolute Auto 1.2 K/mm3 (0.1-0.6); Monocytes Percent Auto 9.5 % (2.6-8.5); Neutrophils Absolute Auto 8.7 K/mm3 (1.3-6.7); Neutrophils Percent Auto 68.9 % (45.5-73.1); Platelet Count Result 274 k/mm3 (150-375); Red Blood Count 4.34 M/mm3 (4.2-5.4); Red Cell Distribution Width 13.8 % (11.5-14.5); White Blood Count 12.7 K/mm3 (4.5-10.0)
[2022-06-16 06:17] LABS: Alanine Aminotransferase 26 U/L (6-35); Albumin Level 3.5 g/dL (3.5-5.1); Alkaline Phosphatase 51 U/L (38-126); Anion Gap 8 mmol/L (8-16); Aspartate Amino Transferase 25 U/L (14-36); Bilirubin,Total 0.8 mg/dL (0.2-1.3); Blood Urea Nitrogen 11 mg/dL (7-17); Calcium 7.9 mg/dL (8.4-10.2); Carbon Dioxide 19 mmol/L (22-30); Chloride 104 mmol/L (98-107); Estimated CRCL calculation 71 ml/min; Estimated Glomerular Filt Rate > 60; Glucose 59 mg/dL (65-110); Potassium 3.6 mmol/L (3.4-5.0); Sodium 131 mmol/L (137-145)
[2022-06-16] MEDS: DEXTROSE 50% 25 GM/50 ML SYRINGE IV PUSH (06:52)
[2022-06-16] MEDS: MORPHINE SULFATE (*CRX) 4 MG/ML INJ IV PUSH (10:53)
--- NOTE | 2022-06-16 12:09 | PM.IMHP ---
H&P: HPI History of Present Illness Date/Time: 06/16/22 12:09 Chief Complaint: Abdominal pain Narrative: The patient is a 36-year-old female presenting to the emergency department complaining of severe upper abdominal pain, mostly located in the right upper quadrant, epigastric area. The patient reports the pain has been going on for about the last 3-4 days and has been progressively getting worse. The patient reports associated nausea and vomiting, as well as poor appetite during this episode. The patient denies any fevers or chills, shortness of breath. The patient denies previous episodes. The patient does report ultrasound at outside hospital showing cholelithiasis. Review of Systems Constitutional: Constitutional: Reports as per HPI, Reports anorexia, Denies chills, Reports fatigue, Denies fever(s), Reports lethargy, Reports poor appetite, Reports weakness, Denies weight gain and Denies weight loss Eyes: Eyes: Reports no additional eye complaints ENT: Reports system reviewed and no additional complaints, except as documented Cardiovascular: Cardiovascular: Reports no additional cardiovascular complaints Respiratory: Respiratory: Reports no additional respiratory complaints Gastrointestinal: Gastrointestinal: Reports as per HPI, Reports bloating, Denies change in stool character, Reports GI cramping, Reports early satiety, Reports heartburn, Reports nausea, Reports vomiting and Denies hematemesis Genitourinary: Genitourinary: Reports no additional female genitourinary complaints Musculoskeletal: Musculoskeletal: Reports no additional musculoskeletal complaints Integumentary/Breasts: Skin/Breast: Reports system reviewed and no additional complaints, except as docu Neurologic: Reports system reviewed and no additional complaints, except as documented Psychiatric: Psychiatric: Reports no additional psychiatric complaints Endocrine: Endocrine: Reports no additional endocrine complaints Hematologic/Lymphatic: Hematologic/Lymphatic: Reports no additional hematologic/lymphatic complaints Allergic/Immunologic: Allergic/Immunologic: Reports no additional allergic/immunologic complaints [facility] Past Medical History Medical History No active medical problems Surgical History Surgical History History of bilateral tubal ligation Social History Social History Smoking status: Never smoker Alcohol intake: never Substance use: never Lack of Transportation: No Lack of Food: Never True Current Housing: I Have Housing Concerned About Future Housing: No Difficulty Paying Gas/Electric Bills: No Difficulty Paying for Meds: No Currently Unemployed: No Education: High School Diploma/GED Difficulty w/ Childcare or Family Care: No Spiritual care concerns: No Meds Home Medications and Allergies Home Medications Medication Instructions Recorded Confirmed Type dicyclomine 20 mg tablet 20 mg PO TID PRN spasms #30 tabs 06/14/22 06/15/22 Rx ondansetron HCl 4 mg tablet 4 mg PO TID PRN nausea and 06/14/22 06/15/22 Rx vomiting #10 tabs sulfamethoxazole 800 1 tablet PO Q12H 7 days #14 tabs 06/14/22 06/15/22 Rx mg-trimethoprim 160 mg tablet (Bactrim DS) Allergies Allergy/AdvReac Type Severity Reaction Status Date / Time nalbuphine [From Nubain] Allergy Severe Anaphylactic Verified 06/15/22 12:05 Shock Vital Signs Vital Signs - 24 hr 06/15/22 12:20 06/15/22 13:06 06/15/22 12:56 Temperature Pulse Rate 82 82 98 Respiratory Rate 18 18 14 Blood Pressure 131/94 H 142/90 H Pulse Oximetry 100 100 100 Oxygen Delivery 06/15/22 13:15 06/15/22 14:31 06/15/22 15:42 Temperature Pulse Rate 70 64 69 Respiratory Rate 18 16 20 Blood Pressure 136/94 H 130/83 145/99 H Pulse Oximetry 100 100 100 Oxygen Delivery
[2022-06-16 14:35] VITALS: BP 125/82; PULSE 69; RESP 14; TEMP 36.7; O2SAT 100
--- NOTE | 2022-06-18 11:42 | P.DS_ITS ---
DS: Admitting Diagnosis Discharge Date 06/16/22 Admitting Diagnosis symptomatic cholelithiasis DS: Discharge Diagnosis Discharge Diagnosis (1) Cholelithiasis: Code(s): K80.20 - Calculus of gallbladder without cholecystitis without obstruction Status: Acute Assessment and Plan: quite symptomatic, improved with analgesia and low-fat diet, patient prefers to be discharged home with plans to return for interval cholecystectomy in the next week DS: Summary Hospital Course Reason for hospitalization: symptomatic cholelithiasis Hospital Course: The patient is a 36-year-old female presenting to the emergency department complaining of severe upper abdominal pain, nausea and vomiting. Workup, including imaging, is significant for cholelithiasis. Given these findings, the patient was admitted to the surgical service. Upon evaluation, the patient was noted to feel much better and have a benign exam. Given that it was the weeken d, we started her on a low-fat diet which she tolerated without issue. She was given the option of waiting for surgery early in the week versus being discharged and coming back for interval cholecystectomy as outpatient. The patient wanted to go home and come back for interval cholecystectomy in the next week. She will be discharged home with p.o. analgesia and low-fat diet. She will be scheduled for interval cholecystectomy urgently. Status at Discharge Functional status at discharge: independent ambulation Overall status at discharge: patient is back to baseline Time Spent with Patient Time attestation: Total time spent providing and/or coordinating discharge services: Time spent: Less than 30 minutes Exam Const: General: cooperative, comfortable and no acute distress Resp: Auscultation: clear to auscultation bilaterally Cardio: Rate: regular rate Rhythm: regular rhythm GI: Inspection: normal to inspection and non-distended GI Palp: No abdominal tenderness, Yes Soft to palpation, No Tenderness to palpation present (GI), No Guarding due to palpation present (GI) and No Rigid due to palpation Discharge Plan Discharge Attending physician on discharge: Bianca Salas Consulting providers: Neymar Quiroz Discharging Clinician: Bianca Salas Patient Disposition: Home, Self-Care Activity: as tolerated Diet: low fat Patient Instructions: Antibiotic Form, Cholecystitis (GEN), Low Fat Diet (DC) Stand Alone Forms: General Discharge Information Follow-up/Referrals: Bianca Salas MD [Physician] - Other (Office will call to schedule Cholecystectomy) Discharge Medications: Continued dicyclomine 20 mg tablet 20 mg PO TID PRN (Reason: spasms) Qty: 30 0RF sulfamethoxazole-trimethoprim [Bactrim DS] 800-160 mg tablet 1 tablet PO Q12H 7 Days Qty: 14 0RF Label Comments: STARTED 06/14/22 FOR 7 DAYS ondansetron HCl 4 mg tablet 4 mg PO TID PRN (Reason: nausea and vomiting) Qty: 10 0RF Date of admission: 06/15/22 14:43 Primary Care Provider: Gianfranco Rhodes Admitting Provider: Bianca Salas Attending physician on admission: Bianca Salas Condition: Stable
== END 2022-06-16 14:55 | disposition home or self-care (01) ==
LOC: ANHED 14:48 → ANH3MEDSUR 16:23
PROVIDERS: Admitting Provider Surgery; Emergency Provider Emergency Medicine; PCP Family Medicine; Visit Provider Surgery
DX: K80.20 Calculus of gallbladder without cholecystitis without obstruction (principal); N39.0 Urinary tract infection, site not specified; Z20.822 Contact with and (suspected) exposure to COVID-19
CPT/HCPCS: 36415; 74177; 80053; 81001; 81025; 83690; 85025; 87086; 87088; 87637; 96361; 96365; 96366; 96367; 96375; 96376; 99285; A9270; G0378; J0131; J2270; J2405; J2543; J7030; Q9967

== ENCOUNTER 2022-06-20 01:08 | Day surgery (SDC) | payer BC, MEDICAID, SELFPAY ==
[2022-06-17 11:46] VITALS: BMI 30.2
--- NOTE | 2022-06-17 11:54 | PC.NURSE ---
Report to the Outpatient Waiting Room, entrance under the green pavilion located off [facility], at time _1100__ on date __06/20/22 . Planned Procedure Time: __1 PM . Time changes happen often and if your time is changed the preop area will call you the afternoon before. - You and your visitor will be asked to self-screen and do not enter if you have any COVID symptoms. - Only one visitor is requested with a max of two and NO children visitors are allowed at this time. - The patient visitor may be requested to leave or wait in car when not with patient due to distancing restrictions. - A mask is optional within the hospital at this time. Patients may have clear liquids (water, carbonated beverages, clear teas, apple juice) until 3 hours prior to surgery (1000 AM) with a maximum of 20 ounces. - No food from midnight until time of surgery - Infants may have breast milk until 4 hours before surgery, infant formula 6 hours prior to surgery. - Children will be allowed to drink immediately following surgery. If applicable, please bring a bottle or sippy cup to assist with drinking. Juice, water, soda, and popsicles are readily available. For infants on formula, please bring formula the day of surgery. Pacifiers are allowed. Take the following medications with a SIP of water the morning of surgery: __DICYCLOMINE & ONDANSETRON IF NEEDED__ DO NOT STOP ANY OF YOUR OTHER PRESCRIPTION MEDICATIONS PRIOR TO SURGERY ?EXCEPT THE FOLLOWING Medications to discontinue per physician NONE Date to take last dose Please no make-up, nail french, hairspray, perfume, deodorant, or body powder the day of surgery. No jewelry (including any body piercings) or valuables the day of surgery, leave them at home. Please take a shower or bath the night before, or the morning of, surgery with an antibacterial soap. Wear comfortable, loose fitting clothing. Children are encouraged to wear pajamas. - Jewelry must be removed prior to entering the operating room. Rings and piercings that are not removed may be cut off. - The hospital will not accept responsibility for valuables. - Please leave all valuables, including medications, at home the day of surgery. If you are going home after surgery, a licensed jukebox route driver must drive you home. - NO public transportation without another adult if you receive anesthesia. - We recommend that an adult stay with you for 24 hours following discharge. - We also recommend that you do not drive, make important decision, drink alcoholic beverages, or take any drugs that were not prescribed by your health care provider for at least 24 hours after your discharge time. For Pediatric surgeries, we recommend two adults accompany the child home. Follow any additional instructions given to you from your surgeon. If you or anyone in your household have experienced Covid symptoms in the past week, please notify your surgeon or the nurse liaison at the phone number below for possible testing. Telephone instructions given to ___PATIENT and asked if any additional questions and then verbalized understanding. Patient advised to call surgeon office or pre surgery nurse liaison [phone] if any additional questions.
[2022-06-20] VITALS (8 sets, daily range): BP systolic 135–163; BP diastolic 75–108; PULSE 49–106; RESP 12–20; TEMP 36.1–36.9; O2SAT 100
--- NOTE | 2022-06-20 09:44 | WPDHPUPDATE1 ---
History and Physical Update Update Date/Time: 06/20/22 09:44 History and Physical has been reviewed, including an updated exam of the patient. There are NO changes in the patient's condition. Risks, benefits, and alternatives have been discussed and questions answered. Patient agrees to proceed with procedure.
[2022-06-20] MEDS: LACTATED RINGERS 1,000 ML 30 ML IV CONT ×2 (09:52→11:55)
[2022-06-20] MEDS: ACETAMINOPHEN 500 MG TABLET 1000 MG PO (09:53)
[2022-06-20] MEDS: KETOROLAC 15 MG/ML VIAL (*BKC) IV PUSH (09:53)
--- NOTE | 2022-06-20 10:13 | P.PNAN_ITS ---
Anes - Initial Pre Proc Eval Procedure: Operation Date: 06/20/22 12:00 Proposed Procedures p Laparoscopic Cholecystectomy - Bianca Salas MD Date/Time: 06/20/22 10:13 Surgeon: Bianca Salas MD Pre Op Diagnosis: Cholecystitits with Cholilithiasis Patient Data Age: 36 Gender: F Height: 1.55 m Weight: 79 kg Last Vital Signs Temp 36.9 C 06/20/22 09:22 Pulse 67 06/20/22 09:22 Resp 16 06/20/22 09:22 BP 135/75 06/20/22 09:22 Pulse Ox 100 06/20/22 09:22 O2 Del Method Room Air 06/20/22 09:22 Allergies Allergy/AdvReac Type Severity Reaction Status Date / Time nalbuphine [From Nubain] Allergy Severe Anaphylactic Verified 06/20/22 10:03 Shock Home Medications Medication Instructions Recorded Confirmed Type dicyclomine 20 mg tablet 20 mg PO TID PRN spasms #30 tabs 06/14/22 06/20/22 Rx ondansetron HCl 4 mg tablet 4 mg PO TID PRN nausea and 06/14/22 06/20/22 Rx vomiting #10 tabs sulfamethoxazole 800 1 tablet PO Q12H 7 days #14 tabs 06/14/22 06/20/22 Rx mg-trimethoprim 160 mg tablet (Bactrim DS) Patient hx anesthesia problems: none Family hx anesthesia problems: none Results Review: All pre-operative results and documents have been reviewed as part of the pre- operative evaluation. [facility] Past Medical History Medical History (Updated 06/20/22 @ 10:13 by Jhony López MD) Obesity Surgical History Surgical History History of bilateral tubal ligation Social History Social History Smoking status: Never smoker Second hand tobacco smoke exposure: No Alcohol intake: never Substance use: never Substance use type: does not use Lack of Transportation: No Lack of Food: Never True Current Housing: I Have Housing Concerned About Future Housing: No Difficulty Paying Gas/Electric Bills: No Difficulty Paying for Meds: No Currently Unemployed: No Education: High School Diploma/GED Difficulty w/ Childcare or Family Care: No Living arrangements: with family Spiritual care concerns: No Anes - Eval Final PreProcedure Day of Procedure 06/20/22 10:13 Patient weight: obese Heart: regular rate and rhythm Lungs: clear to auscultation Airway: Mallampati scale class II Neurological: alert and oriented Last oral intake: >/= 8 hours Emergent: no Anesthetic plan: proceed Anesthesia type and monitoring: general ETT and standard monitoring Results Review: All pre-operative results and documents have been reviewed as part of the pre- operative evaluation. Informed Consent: The patient's anesthetic plan and its attendant risks and benefits were discussed with the patient/family/POA. Questions were solicited and answers provided to the satisfaction of the patient/family/POA.
[2022-06-20] MEDS: ceFAZolin 2 GM/D5W 50 ML 2 GM/50 ML BAG IVPB (11:07)
[2022-06-20] MEDS: BUPIVACAINE/EPINEPHRINE 0.5% 10 ML VIAL 30 ML INFILTRATE (11:31)
--- NOTE | 2022-06-20 11:55 | P.OP_ITS ---
Procedure Note - Detailed Date of Procedure 06/20/22 Pre-op Diagnosis cholecystitis, cholelithiasis Post-op Diagnosis Same Procedure Performed Laparoscopic cholecystectomy Surgeon Bianca Salas MD Anesthesia General Indications 36-year-old female presented to the ED complaining of postprandial right upper quadrant abdominal pain associated with nausea and vomiting. Workup including imaging significant for cholecystitis, cholelithiasis. Findings Cholecystitis with cholelithiasis Description of Procedure The patient was taken to the operating room placed in the supine position. After adequate induction of general anesthesia, the patient was prepped and draped in normal sterile fashion. A time-out was then performed to verify the patient's identity as well as the procedure being performed. I then made a 5 mm incision in the infraumbilical region. Through this, a Veress needle was placed into the peritoneal cavity and CO2 gas was then insufflated. After adequate pneumoperitoneum was achieved, the Veress needle was removed and a 5 mm optiview trocar was placed through this incision under direct visualization. I then placed the laparoscope through this trocar site and under direct visualization placed a further 12 mm subxiphoid port as well as 2 additional 5 mm ports in the right upper abdomen. The gallbladder was then identified and was noted to be moderately inflamed and distended. I was able to place a grasper at the dome of the gallbladder and this was retracted anterior and cephalad up over the liver. A 2nd retractor was then placed at the infundibulum and retracted late rally, this allowed visualization of the triangle of Calot. I then was able to visualize the cystic duct in its entirety from its proximal insertion into the gallbladder, to its distal junction with the common hepatic/common bile duct junction. At this point, I carefully skeletonized the proximal cystic duct with the [place] dissector. I then clipped and transected the proximal cystic duct. Next I visualized the cystic artery. Again the artery was skeletonized, clipped, and transected. I then used the Bovie cautery to take down the peritoneal attachments of the gallbladder off the liver bed. Once the gallbladder specimen was completely detached, an endo-pouch was placed through the 12 mm port site. I then placed the gallbladder specimen into the Endo pouch and removed the endo-pouch from the 12 mm port site. The specimen will now be sent to pathology for further review. I then copiously irrigated the right upper quadrant. Hemostasis was noted in the liver bed, the clips were noted to be in good position on both the cystic duct stump and the cystic artery stump. No other pathology was noted in the right upper quadrant. I then moved the laparoscope to the subxiphoid port. No iatrogenic injury or other pathology was noted in the lower abdomen. I then closed the 12 mm trocar site under direct visualization using the Dev cone and 0 Vicryl suture. At this point, the abdomen was desufflated and all ports removed. All port sites were then closed with 4.O Monocryl subcuticular sutures. Dermabond was placed on each incision. The patient tolerated the procedure well, was extubated in the operating room postoperative and will be transferred to the recovery room in stable condition Estimated Blood Loss 5 Drains No Packing No Pathology Yes Complications No immediate complications Condition Stable Disposition PACU [facility] Billing Surgery - Charge Forward: Surgery Billing
[2022-06-20] MEDS: fentaNYL CITRATE INJ (*CRX) 100 MCG/2 ML VIAL 25 MCG IV PUSH ×4 (12:24→12:37)
== END 2022-06-20 13:50 | disposition home or self-care (01) ==
PROVIDERS: PCP Family Medicine; Visit Provider Surgery
PROC: 0FT44ZZ Resection of Gallbladder, Percutaneous Endoscopic Approach (ICD-10-PCS; CPT 47562; principal; 2022-06-20 12:00)
DX: K81.1 Chronic cholecystitis (principal); E66.9 Obesity, unspecified; Z68.32 Body mass index [BMI] 32.0-32.9, adult
CPT/HCPCS: 47562; 36415; 86850; 86900; 86901; 88304; A9270; J0690; J1100; J1885; J2250; J2405; J2704; J2710; J3010; J7030; J7120

== ENCOUNTER 2023-03-03 09:23 | Outpatient (CLI) | payer OTHER, SELFPAY ==
[2023-03-03 09:36] LABS: Basophils Absolute Auto 0.06 K/mm3 (0.00-0.10); Basophils Percent Auto 0.8 % (0.0-1.0); Eosinophils Absolute Auto 0.17 K/mm3 (0.02-0.50); Eosinophils Percent Auto 2.1 % (1.0-6.0); Hematocrit 41.6 % (35.0-49.0); Hemoglobin 13.7 g/dL (12.0-15.0); Immature Granulocyte Absolute 0.03 K/mm3 (0.00-0.00); Immature Granulocyte Percent A 0.4 % (0.0-0.0); Lymphocytes Absolute Auto 1.95 K/mm3 (1.10-4.50); Lymphocytes Percent Auto 24.7 % (18.0-42.0); Mean Corpuscular HGB Conc 32.9 g/dL (32.0-36.0); Mean Corpuscular Hemoglobin 30.5 pg (27.0-31.0); Mean Corpuscular Volume 92.7 fL (78.0-102.0); Mean Platelet Volume 9.9 fl (9.2-11.8); Monocytes Percent Auto 8.8 % (2.0-11.0); Neutrophils Percent Auto 63.2 % (50.0-70.0); Platelet Count Result 332 K/mm3 (150-420); Red Blood Count 4.49 M/mm3 (4.20-5.40); Red Cell Distribution Width 13.8 % (11.6-14.4); White Blood Count 7.9 K/mm3 (4.8-10.8)
[2023-03-03 10:17] LABS: Alanine Aminotransferase 62 U/L (14-59); Albumin Level 3.7 g/dL (3.4-5.0); Alkaline Phosphatase 78 U/L (46-116); Anion Gap 9 mmol/L (8-16); Aspartate Amino Transferase 29 U/L (15-37); Bilirubin,Total 0.4 mg/dL (0.00-1.00); Blood Urea Nitrogen 9 mg/dL (7-18); Calcium 9.2 mg/dL (8.5-10.1); Carbon Dioxide 26 mmol/L (21-32); Chloride 106 mmol/L (98-108); Estimated Glomerular Filt Rate > 60; Glucose 89 mg/dL (70-99); Osmolality Calculated 289 mOsm/kg (285-295); Potassium 4.5 mmol/L (3.5-5.1); Sodium 141 mmol/L (136-145); Total Protein 6.7 g/dL (6.4-8.2)
[2023-03-04 06:42] LABS: Iron 80 ug/dL (50-170)
[2023-03-06 10:20] LABS: Transferrin 202 mg/dL (188-341)
== END 2023-03-03 09:24 | disposition home or self-care (01) ==
LOC: CHSLAB 09:25
PROVIDERS: Nurse Practitioner Family; PCP Family Medicine; Visit Provider Physician Assistant
DX: R53.83 Other fatigue (principal); R79.89 Other specified abnormal findings of blood chemistry
CPT/HCPCS: 36415; 80053; 83540; 84466; 85025

== ENCOUNTER 2023-05-06 13:45 | Outpatient (CLI) | payer OTHER, SELFPAY ==
[2023-05-06 14:43] LABS: SARS-CoV-2 RNA PCR Positive (Negative)
[2023-05-06 14:44] LABS: Influenza A QL RT-PCR Negative (Negative); Influenza B QL RT-PCR Negative (Negative)
== END 2023-05-06 13:46 | disposition home or self-care (01) ==
LOC: CHSLAB 13:46
PROVIDERS: PCP Family Medicine; Visit Provider Family Medicine
DX: U07.1 COVID-19 (principal); R05.9 Cough, unspecified
CPT/HCPCS: 87636

== ENCOUNTER 2023-06-16 08:44 | Outpatient (CLI) | payer OTHER, SELFPAY ==
--- NOTE | ~2023-06-16 | XR_ITS ---
XR chest 2V DATE: 06/16/2023 08:57 INDICATION: Chronic cough for 2 weeks TECHNIQUE: 2 views COMPARISON: 01/29/2022 PA chest FINDINGS: Normal heart size. No hilar or mediastinal enlargement. No pulmonary infiltrate or consolid ation, pleural effusion or pulmonary vascular congestion or pneumothorax. Included skeletal structure s appear normal. Surgical clips are noted overlying the upper abdomen on the lateral view IMPRESSION: No active cardiac pulmonary disease Probable cholecystectomy Reviewed, dictated and finalized at location B. T SERVICE CLERK
== END 2023-06-16 08:45 | disposition home or self-care (01) ==
LOC: CHSIMG 08:46
PROVIDERS: PCP Family Medicine; Visit Provider Nurse Practitioner Family
DX: R09.89 Other specified symptoms and signs involving the circulatory and respiratory systems (principal)
CPT/HCPCS: 71046

== ENCOUNTER 2023-09-22 09:06 | Outpatient (CLI) | payer OTHER, MEDICAID, SELFPAY ==
[2023-09-25 21:58] LABS: Varicella IgM Antibody 0.41
== END 2023-09-22 09:07 | disposition home or self-care (01) ==
LOC: CHSLAB 09:08
PROVIDERS: PCP Nurse Practitioner Family; Visit Provider Nurse Practitioner Family
DX: Z01.84 Encounter for antibody response examination (principal)
CPT/HCPCS: 36415; 86787

== ENCOUNTER 2023-09-25 13:40 | Outpatient (CLI) | payer OTHER, MEDICAID, SELFPAY ==
--- NOTE | ~2023-09-25 | US_ITS ---
Pelvic ultrasound. Clinical History: Excessive and frequent menstruation Technique: Realtime transabdominal scanning of the pelvis was performed. Color flow Doppler and Doppl er spectral analysis were performed. Findings: The uterus is anteverted. The endometrial stripe has a thickness of 9 mm. No focal mass is identified. The right ovary measures 2.2 x 1.9 x 2.5 cm. No significant right ovarian or adnexal mass is seen. The left ovary measures 2.1 x 2.4 x 1.6 cm. No significant left ovarian or adnexal mass is seen. Vascular flow present in both ovaries on Doppler spectral analysis. There is no evidence of free fluid in the cul de sac. Impression: Unremarkable pelvic ultrasound. Reviewed, dictated and finalized at location . Impression: Unremarkable pelvic ultrasound.
== END 2023-09-25 13:41 | disposition home or self-care (01) ==
PROVIDERS: PCP Nurse Practitioner Family; Visit Provider Nurse Practitioner Obstetrics & Gynecology
DX: N92.0 Excessive and frequent menstruation with regular cycle (principal)
CPT/HCPCS: 76856

== ENCOUNTER 2023-09-29 08:23 | Outpatient (CLI) | payer OTHER, MEDICAID, SELFPAY ==
[2023-09-29 08:52] LABS: Basophils Absolute Auto 0.08 K/mm3 (0.00-0.10); Basophils Percent Auto 0.9 % (0.0-1.0); Eosinophils Absolute Auto 0.31 K/mm3 (0.02-0.50); Eosinophils Percent Auto 3.3 % (1.0-6.0); Hemoglobin 13.6 g/dL (12.0-15.0); Immature Granulocyte Absolute 0.03 K/mm3 (0.00-0.00); Immature Granulocyte Percent A 0.3 % (0.0-0.0); Lymphocytes Absolute Auto 2.12 K/mm3 (1.10-4.50); Lymphocytes Percent Auto 22.6 % (18.0-42.0); Mean Corpuscular HGB Conc 33.2 g/dL (32-36); Mean Corpuscular Hemoglobin 30.4 pg (27.0-31.0); Mean Corpuscular Volume 91.7 fL (78.0-102.0); Mean Platelet Volume 10.1 fl (9.2-11.8); Monocytes Absolute Auto 0.98 K/mm3 (0.10-0.90); Monocytes Percent Auto 10.4 % (2.0-11.0); Neutrophils Absolute Auto 5.86 K/mm3 (1.70-7.20); Neutrophils Percent Auto 62.5 % (50.0-70.0); Platelet Count Result 290 K/mm3 (150-420); Red Blood Count 4.47 M/mm3 (4.20-5.40); Red Cell Distribution Width 14.2 % (11.6-14.4); White Blood Count 9.4 K/mm3 (4.8-10.8)
[2023-09-29 10:43] LABS: Alanine Aminotransferase 44 U/L (14-59); Albumin Level 3.7 g/dL (3.4-5.0); Alkaline Phosphatase 65 U/L (46-116); Anion Gap 9 mmol/L (4-12); Aspartate Amino Transferase 23 U/L (15-37); Beta HCG Quantitative < 1.00 mIU/mL (0-6); Bilirubin,Total 0.2 mg/dL (0.00-1.00); Blood Urea Nitrogen 15 mg/dL (7-18); Calcium 9.2 mg/dL (8.5-10.1); Carbon Dioxide 27 mmol/L (21-32); Chloride 103 mmol/L (98-108); Estimated Glomerular Filt Rate > 60; Glucose 74 mg/dL (70-99); Osmolality Calculated 287 mOsm/kg (285-295); Potassium 4.1 mmol/L (3.5-5.1); Sodium 139 mmol/L (136-145); Total Protein 6.7 g/dL (6.4-8.2)
[2023-09-29 10:44] LABS: Thyroid Stimulating Hormone Reflex 1.98 u/IU/mL (0.36-3.74)
[2023-10-01 14:52] LABS: Prolactin 7.1 ng/mL
== END 2023-09-29 08:24 | disposition home or self-care (01) ==
LOC: CHSLAB 08:27
PROVIDERS: PCP Nurse Practitioner Family; Visit Provider Nurse Practitioner Obstetrics & Gynecology
DX: R89.9 Unspecified abnormal finding in specimens from other organs, systems and tissues (principal); N92.0 Excessive and frequent menstruation with regular cycle
CPT/HCPCS: 36415; 80053; 84146; 84443; 84702; 85025

== ENCOUNTER 2023-11-21 01:29 | Day surgery (SDC) | payer OTHER, SELFPAY ==
[2023-11-11 13:16] VITALS: BMI 30.4
--- NOTE | 2023-11-11 13:24 | SUR.PREOP ---
Report to the Outpatient Waiting Room, entrance under the green pavilion located off [facility], at time 9:30a.m. on date 11/21/2023. Planned Procedure Time: 11:30a.m. Time changes happen often and if your time is changed the preop area will call you the afternoon before. - You and your visitor will be asked to self-screen and do not enter if you have any COVID symptoms. - A mask is optional within the hospital at this time. Patients may have clear liquids (water, carbonated beverages, clear teas, apple juice) until 3 hours prior to surgery with a maximum of 20 ounces. - No food from midnight until time of surgery Take the following medications with a SIP of water the morning of surgery: bupropion DO NOT STOP ANY OF YOUR OTHER PRESCRIPTION MEDICATIONS PRIOR TO SURGERY ?EXCEPT THE FOLLOWING Medications to discontinue per physician N/A Date to take last dose N/A Please no make-up, nail indonesian, hairspray, perfume, deodorant, or body powder the day of surgery. No jewelry (including any body piercings) or valuables the day of surgery, leave them at home. Please take a shower or bath the night before, or the morning of, surgery with an antibacterial soap. Wear comfortable, loose fitting clothing. Children are encouraged to wear pajamas. - Jewelry must be removed prior to entering the operating room. Rings and piercings that are not removed may be cut off. - The hospital will not accept responsibility for valuables. - Please leave all valuables, including medications, at home the day of surgery. If you are going home after surgery, a licensed chassis driver must drive you home. - NO public transportation without another adult if you receive anesthesia. - We recommend that an adult stay with you for 24 hours following discharge. - We also recommend that you do not drive, make important decision, drink alcoholic beverages, or take any drugs that were not prescribed by your health care provider for at least 24 hours after your discharge time. For Pediatric surgeries, we recommend two adults accompany the child home. Follow any additional instructions given to you from your surgeon. If you or anyone in your household have experienced Covid symptoms in the past week, please notify your surgeon or the nurse liaison at the phone number below for possible testing. Telephone instructions given to Lily Peña and asked if any additional questions and then verbalized understanding. Patient advised to call surgeon office or pre surgery nurse liaison [phone] if any additional questions.
[2023-11-21] VITALS (10 sets, daily range): BP systolic 111–150; BP diastolic 63–96; PULSE 67–103; RESP 14–18; TEMP 36.6–36.9; O2SAT 100
--- NOTE | 2023-11-21 07:27 | PM.IMHP ---
H&P: HPI History of Present Illness Date/Time: 11/21/23 07:27 Chief Complaint: menorrhagia Narrative: Patient is a 38 year old female who presents for total laparoscopic hysterectomy and indicated cystoscopy, for menorrhagia. She reports worsening periods over the past year, which have been unresponsive to multiple methods of medical management. Pelvic US demonstrated normal appearing uterus, no fibroids or polyps. She desires definitive surgical management with total laparoscopic hysterectomy. She has a history of a tubal ligation, but we discussed removal of any tubal remnants. Review of Systems Review of Systems: All systems reviewed & are unremarkable except as noted in HPI and below PMFSH Past Medical History Medical History Encounter for administration of vaccine Obesity Surgical History Surgical History History of bilateral tubal ligation S/P laparoscopic cholecystectomy 06/20/22 Family History Family History Mother Pancreatic cancer Thyroid disorder Sibling Lung cancer Thyroid disorder Social History Social History Smoking status: Never smoker Second hand tobacco smoke exposure: No Alcohol intake: never Substance use: never Substance use type: does not use Lack of Transportation: No Lack of Food: Never True Current Housing: I Have Housing Concerned About Future Housing: No Difficulty Paying Gas/Electric Bills: No Difficulty Paying for Meds: No Currently Unemployed: No Education: High School Diploma/GED Difficulty w/ Childcare or Family Care: No Living arrangements: with family Spiritual care concerns: No Meds Home Medications and Allergies Home Medications Medication Instructions Recorded Confirmed Type phentermine 30 mg capsule 30 mg PO DAILY #30 caps 09/30/23 11/11/23 Rx bupropion HCl 150 mg 24 hr tablet, 150 mg PO QAM #30 tabs 10/17/23 11/11/23 Rx extended release (Wellbutrin XL) quetiapine 25 mg tablet (Seroquel) 25 mg PO QHS #30 tabs 10/17/23 11/11/23 Rx amoxicillin 875 mg-potassium 1 tablet PO BID #20 tabs 11/18/23 Rx clavulanate 125 mg tablet Allergies Allergy/AdvReac Type Severity Reaction Status Date / Time nalbuphine [From Kalyn] Allergy Severe Anaphylactic Verified 11/11/23 13:14 Shock Exam Const: General: comfortable and no acute distress HENMT: Mouth: Yes moist mucous membranes Resp: Effort & Inspection: normal respiratory effort Cardio: Rate: regular rate Rhythm: regular rhythm Skin: General skin exam: normal color Extrem: General: normal to inspection Psych: Mental Status: mental status grossly normal Assessment and Plan Assessment and plan (1) Menorrhagia: Code(s): N92.0 - Excessive and frequent menstruation with regular cycle Status: Acute Assessment and Plan: - worsening over the past year - unresponsive to medical management including OCPs, Nexplanon, and IUD - discussed risks and benefits of expectant vs medical vs surgical management with the patient who desires definitive surgical management with total laparoscopic hysterectomy - discussed removal of tubal remnants if present, ovarian conservation, and indicated cystoscopy
[2023-11-21] MEDS: ACETAMINOPHEN 500 MG TABLET 1000 MG PO (09:25)
[2023-11-21] MEDS: KETOROLAC 15 MG/ML VIAL (*BKC) IV PUSH (09:48)
--- NOTE | 2023-11-21 10:35 | P.PNAN_ITS ---
Anes - Initial Pre Proc Eval Procedure: Operation Date: 11/21/23 11:30 Proposed Procedures p Total Laparoscopic Hysterectomy with Bilateral Salpingectomy, Cystoscopy - Alexandru Brunson MD Date/Time: 11/21/23 10:35 Surgeon: Alexandru Brunson MD Pre Op Diagnosis: Excessive and Freq Menstruation Patient Data Age: 38 Gender: F Height: 1.52 m Weight: 76.95 kg Last Vital Signs Temp 36.9 C 11/21/23 08:43 Pulse 75 11/21/23 08:43 Resp 18 11/21/23 08:43 BP 150/96 H 11/21/23 08:43 Pulse Ox 100 11/21/23 08:43 O2 Del Method Room Air 11/21/23 08:43 Allergies Allergy/AdvReac Type Severity Reaction Status Date / Time nalbuphine [From Nubain] Allergy Severe Anaphylactic Verified 11/21/23 08:47 Shock Home Medications Medication Instructions Recorded Confirmed Type phentermine 30 mg capsule 30 mg PO DAILY #30 caps 09/30/23 11/21/23 Rx bupropion HCl 150 mg 24 hr tablet, 150 mg PO QAM #30 tabs 10/17/23 11/21/23 Rx extended release (Wellbutrin XL) quetiapine 25 mg tablet (Seroquel) 25 mg PO QHS #30 tabs 10/17/23 11/21/23 Rx Patient hx anesthesia problems: none Family hx anesthesia problems: none Results Review: All pre-operative results and documents have been reviewed as part of the pre- operative evaluation. FORMERLY [facility], [facility]1983 Past Medical History Medical History Encounter for administration of vaccine Obesity Surgical History Surgical History History of bilateral tubal ligation S/P laparoscopic cholecystectomy 06/20/22 Family History Family History Mother Pancreatic cancer Thyroid disorder Sibling Lung cancer Thyroid disorder Social History Social History Smoking status: Never smoker Second hand tobacco smoke exposure: No Alcohol intake: never Substance use: never Substance use type: does not use Lack of Transportation: No Lack of Food: Never True Current Housing: I Have Housing Concerned About Future Housing: No Difficulty Paying Gas/Electric Bills: No Difficulty Paying for Meds: No Currently Unemployed: No Education: High School Diploma/GED Difficulty w/ Childcare or Family Care: No Living arrangements: with family Spiritual care concerns: No Anes - Eval Final PreProcedure Day of Procedure 11/21/23 10:35 Patient weight: obese Heart: regular rate and rhythm Lungs: clear to auscultation Airway: Mallampati scale class II Neurological: alert and oriented Last oral intake: >/= 8 hours ASA classification: II Emergent: no Anesthetic plan: proceed Anesthesia type and monitoring: general ETT and standard monitoring Results Review: All pre-operative results and documents have been reviewed as part of the pre- operative evaluation. Informed Consent: The patient's anesthetic plan and its attendant risks and benefits were discussed with the patient/family/POA. Questions were solicited and answers provided to the satisfaction of the patient/family/POA.
--- NOTE | 2023-11-21 11:26 | WPDHPUPDATE1 ---
History and Physical Update Update Date/Time: 11/21/23 11:26 History and Physical has been reviewed, including an updated exam of the patient. There are NO changes in the patient's condition. Risks, benefits, and alternatives have been discussed and questions answered. Patient agrees to proceed with procedure.
[2023-11-21] MEDS: ceFAZolin 2 GM/D5W 50 ML 2 GM/50 ML BAG IVPB (11:44)
[2023-11-21] MEDS: BUPIVACAINE/EPINEPHRINE 0.5% 10 ML VIAL 20 ML INFILTRATE (12:28)
[2023-11-21] MEDS: LACTATED RINGERS 1,000 ML 30 ML IV CONT ×2 (13:55)
[2023-11-21] MEDS: SCOPOLAMINE 1 MG PATCH 1 PATCH TRANSDERM (14:06)
[2023-11-21] MEDS: fentaNYL CITRATE INJ (*CRX) 100 MCG/2 ML VIAL 25 MCG IV PUSH ×2 (14:18→14:22)
--- NOTE | 2023-11-21 14:18 | P.OP_ITS ---
Procedure Note - Detailed Date of Procedure 11/21/23 Pre-op Diagnosis Excessive and Freq Menstruation Post-op Diagnosis Same Procedure Performed total laparoscopic hysterectomy and cystoscopy Surgeon Alexandru Brunson MD Anesthesia General and Local Findings normal appearing uterus, significantly dilated veins in the lower uterine segment; normal appearing ovaries;fallopian tubes surgically absent; normal appearing appendix; normal bladder with bilateral ureteral jets at the end of procedure Description of Procedure The patient was taken to the operating room with IV fluids infusing and placed in dorsal supine position. She was given general anesthesia by the anesthesiologist without difficulty. She was then repositioned in the dorsal lithotomy position and prepped and draped in the usual sterile manner. A Garay catheter was placed in the patient's bladder. The Mary uterine manipulator was place in the cervix and the vaginal balloon was insufflated. Legs were returned to physiologic position. An oral gastric tube was placed in the stomach to suction any contents. A small incision was made in the abdomen in the mid clavicular line below the left costal margin. A 5mm trocar was placed into the umbilicus under direct vision. Intraabdominal placement was confirmed with an opening pressure of 6mmHg. After adequate visualization a 5mm and a 10mm port were placed lateral to the inferior epigastic vessels on the left. The tabulate Ligasure was used t hroughout the case. The bilateral ureters were visualized peristalsing on the pelvic sidewall. After evaluating the pathology the hysterectomy was begun by coagulating and cutting the uteroovarian pedicles and the round ligaments. The bladder flap was created the bladder from the lower uterine segment.The uterine vessels were skeletonized bilaterally,coagulated and then cut. The Ligasure L hook was used to create the colpotomy anteriorly and continued around the circumference of the cervix. The uterus was delivered vaginally. The pedicles were made hemostatic using the Ligasure device. After adequate hemostasis the vaginal cuff was closed with V-loc suture in a running fashion. he abdominal cavity was lavaged with normal saline; there was no active bleeding. Surgicel powder was placed along the vaginal cuff. T The 10mm port was closed using a 0-Vicryl suture and the granny needle. Instruments were removed under direct vision and as much CO2 was removed as possible. Methylene blue dye was injected intravenously, cystoscopy was performed. Both ureters showed normal flow and there was no damage to the bladder. The abdomen was washed and the incision sites were closed with 4-0 Monocryl. The incisions were covered with skin glue. Patient tolerated the procedure well. Sponge, lap, needle, and instrument counts were correct. Patient was awakened and taken to the PACU in stable condition by the anesthesiologist. Estimated Blood Loss 50 Pathology Yes Complications No immediate complications Condition Stable Disposition Same day
[2023-11-21] MEDS: ONDANSETRON INJ 4 MG/2 ML VIAL IV PUSH (15:00)
--- NOTE | 2023-11-21 15:19 | SUR.PHASEII ---
Per patient she has taken oxycodone before with no adverse reactions. Mother at bedside and confirms.
[2023-11-21] MEDS: oxyCODONE HCL (*CRX) 5 MG TAB IR PO (15:30)
== END 2023-11-21 16:30 | disposition home or self-care (01) ==
PROVIDERS: Visit Provider Obstetrics & Gynecology
PROC: 0UT9FZZ Resection of Uterus, Via Natural or Artificial Opening With Percutaneous Endoscopic Assistance (ICD-10-PCS; CPT 58570; principal; 2023-11-21 11:30)
DX: N92.0 Excessive and frequent menstruation with regular cycle (principal); E66.9 Obesity, unspecified; Z68.33 Body mass index [BMI] 33.0-33.9, adult; Z98.890 Other specified postprocedural states; Z98.51 Tubal ligation status; Z90.49 Acquired absence of other specified parts of digestive tract; Z80.1 Family history of malignant neoplasm of trachea, bronchus and lung; Z80.0 Family history of malignant neoplasm of digestive organs
CPT/HCPCS: 58570; 88307; A9270; J0690; J1100; J1170; J1885; J2250; J2405; J3010; J7030; J7120; Q9968

== ENCOUNTER 2024-02-24 19:38 | Emergency (ER) | payer MEDICAID, SELFPAY ==
[2024-02-24 19:42] VITALS: PULSE 83; RESP 18; TEMP 37; O2SAT 97
[2024-02-24 19:45] VITALS: BP 179/111
--- NOTE | 2024-02-24 19:47 | ED.DENTAL ---
HPI - Dental/Oral General Chief complaint: Dental/Oral Stated complaint: tooth pain Time Seen by Provider: 02/24/24 19:43 Source: patient Mode of arrival: ambulatory Limitations: no limitations History of Present Illness HPI Narrative: 38 year old female presents to the Emergency Department complaining of left lower dental pain radiating to left ear. Onset months ago. Is supposed to see oral surgeon in April. Complaint: tooth pain Onset (ago): month(s) Duration: intermittent Severity: moderate Relieving factors: nothing Exacerbating factors: nothing Related Data Allergies Allergy/AdvReac Type Severity Reaction Status Date / Time nalbuphine [From Nubain] Allergy Severe Anaphylactic Verified 11/21/23 08:47 Shock Review of Systems Review of Systems: All systems reviewed & are unremarkable except as noted in HPI and below Constitutional: Constitutional: Reports as per HPI, Denies chills and Denies fever(s) Eyes: Eyes: Reports as per HPI ENT: Reports system reviewed and no additional complaints, except as documented Comments: left ear pain Cardiovascular: Cardiovascular: Reports as per HPI Respiratory: Respiratory: Reports as per HPI Gastrointestinal: Gastrointestinal: Reports as per HPI Genitourinary: Genitourinary: Reports no additional female genitourinary complaints Musculoskeletal: Musculoskeletal: Reports no additional musculoskeletal complaints Integumentary/Breasts: Skin/Breast: Reports system reviewed and no additional complaints, except as docu Neurologic: Reports system reviewed and no additional complaints, except as documented PMFSH Past Medical History Medical History Encounter for administration of vaccine Obesity Surgical History Surgical History History of bilateral tubal ligation S/P laparoscopic cholecystectomy 06/20/22 Family History Family History Mother Pancreatic cancer Thyroid disorder Sibling Lung cancer Thyroid disorder Social History Social History Smoking status: Never smoker Second hand tobacco smoke exposure: No Alcohol intake: never Substance use: never Substance use type: does not use Lack of Transportation: No Lack of Food: Never True Current Housing: I Have Housing Concerned About Future Housing: No Difficulty Paying Gas/Electric Bills: No Difficulty Paying for Meds: No Currently Unemployed: No Education: High School Diploma/GED Difficulty w/ Childcare or Family Care: No Living arrangements: with family Spiritual care concerns: No Exam Const: General: healthy appearing Nutritional Appearance: well nourished Orientation/consciousness: patient oriented x3 Limitations: no limitations HENMT: Head: normal to inspection Ears: external ears normal and TM's normal bilaterally Face/Nose/Sinus: Normal external nose present Face and sinus: normal facial exam Mouth: Yes Normal oral and palatal mucosa present Throat: posterior oropharynx normal Other: dental decay #17 Eyes: Conjunctivae: conjunctivae normal Pupils: Equal, round and reactive pupils present EOM: EOMs intact bilaterally Neck: Neck: normal visual inspection Chest: Chest palpation & inspection: normal inspection of the chest Resp: Effort & Inspection: normal respiratory effort Auscultation: clear to auscultation bilaterally Cardio: Rate: regular rate Rhythm: regular rhythm GI: Inspection: non-distended GI Palp: Yes Soft to palpation and No Tenderness to palpation present (GI) Skin: General skin exam: normal color Neuro: General: patient oriented x3 Cranial nerves: Yes Nystagmus not present Speech: normal speech Gait exam (Neuro): Normal gait present Other: grossly normal Extrem: General: normal to ins
[2024-02-24] MEDS: AMOXICILLIN/CLAVULANATE K 875-125 MG TAB 1 TABLET PO (20:03)
[2024-02-24] MEDS: HYDROcodone/acetaminophen (*CRX) 10-325 MG TABLET 1 TAB PO (20:03)
[2024-02-24 20:05] VITALS: BP 157/95; PULSE 87; RESP 20; O2SAT 98
== END 2024-02-24 20:05 | disposition home or self-care (01) ==
LOC: CHSED 19:59
PROVIDERS: Emergency Provider Emergency Medicine; PCP Nurse Practitioner Family
DX: K08.89 Other specified disorders of teeth and supporting structures (principal)
CPT/HCPCS: 99283; A9270